=== PATIENT | male | born 1995 | race Caucasian/White ===

== ENCOUNTER 2017-02-14 12:17 | Emergency (ER) | payer MEDICAID ==
[~2017-02-14] VITALS: Ht 165.1 cm; Wt 72.6 kg
[~2017-02-14 12:17] MED LIST: AMOXICILLIN500 M2 PO; AMOXICILLIN875 MG PO; CLARITIN10 MG PO; Kenalog 0.5% Cr15 GM T; MEDROL DOSEPAK4 MG PO; MOTRIN400 MG PO
[2017-02-14 12:22] VITALS: BP 158/84
[2017-02-14] MEDS ORDERED: Motrin,Rufen800 MG PO (12:42)
[2017-02-14] MEDS ORDERED: CLINDAMYCIN HC300 MG PO (12:42)
[2017-02-14] MEDS ORDERED: AMOXICILLIN500 M2 PO (12:42)
== END 2017-02-14 13:32 | disposition home or self-care (01) ==
LOC: ED 12:17
DX: K04.7 Periapical abscess without sinus (principal)

== ENCOUNTER 2017-03-02 15:03 | Emergency (ER) | payer MEDICAID ==
[~2017-03-02] VITALS: Ht 165.1 cm; Wt 73.0 kg
[~2017-03-02 15:03] MED LIST changes: +CLINDAMYCIN HC300 MG PO; +Motrin,Rufen800 MG PO
[2017-03-02 15:20] VITALS: BP 151/89
== END 2017-03-02 16:56 | disposition home or self-care (01) ==
LOC: ED 15:03
DX: S81.812A Laceration without foreign body, left lower leg, initial encounter (principal); W27.8XXA Contact with other nonpowered hand tool, initial encounter; Y93.89 Activity, other specified; Y92.69 Other specified industrial and construction area as the place of occurrence of the external cause; Y99.9 Unspecified external cause status

== ENCOUNTER 2017-03-13 15:39 | Emergency (ER) | payer MEDICAID ==
[~2017-03-13] VITALS: Ht 167.6 cm; Wt 72.6 kg
[2017-03-13 16:14] VITALS: BP 127/54
== END 2017-03-13 17:00 ==
LOC: ED 15:39
DX: S81.812D Laceration without foreign body, left lower leg, subsequent encounter (principal); X58.XXXD Exposure to other specified factors, subsequent encounter

== ENCOUNTER 2017-07-01 10:15 | Emergency (ER) | payer MEDICAID ==
[~2017-07-01] VITALS: Ht 165.1 cm; Wt 72.6 kg
[2017-07-01 10:32] VITALS: BP 138/73
== END 2017-07-01 13:20 | disposition home or self-care (01) ==
LOC: ED 10:15
DX: S40.011A Contusion of right shoulder, initial encounter (principal); F10.10 Alcohol abuse, uncomplicated; Z79.899 Other long term (current) drug therapy; W10.8XXA Fall (on) (from) other stairs and steps, initial encounter; Y93.89 Activity, other specified; Y92.89 Other specified places as the place of occurrence of the external cause; Y99.8 Other external cause status

== ENCOUNTER 2021-07-12 10:40 | Emergency (ER) | payer OTHER ==
[~2021-07-12 10:40] MED LIST changes: +ZOFRAN4 MG PO
[2021-07-12 11:12] VITALS: BP 136/78
[2021-07-12 11:27] LABS: BASO % 0.3 % (0.0-1.0); EOS # 0.1 10*3/uL (0.0-0.4); EOS % 0.4 % (1.0-4.0); HEMATOCRIT 42.8 % (42.0-52.0); LYMPH # 2.9 10*3/uL (1.3-4.4); LYMPH % 20.3 % (27.0-41.0); MEAN CELL VOLUME 86.6 fl (80.0-94.0); MEAN CORPUSCULAR HGB 30.2 pg (27.0-31.0); MEAN CORPUSCULAR HGB CONC 34.8 g/dl (33.0-37.0); MEAN PLATELET VOLUME 10.3 fl (9.6-12.3); MONO # 0.9 10*3/uL (0.1-1.0); MONO % 6.5 % (3.0-9.0); NEUT # 10.3 10*3/uL (2.3-7.9); NEUT % 72.1 % (47.0-73.0); PLATELET COUNT AUTOMATED 299 10*3/uL (130-400); RED BLOOD COUNT 4.94 10*6/uL (4.50-5.90); WHITE BLOOD COUNT 14.2 10*3/uL (4.8-10.8)
[2021-07-12] MEDS ORDERED: COLACE100 MG PO (11:46)
== END 2021-07-12 11:50 | disposition home or self-care (01) ==
LOC: ED 10:40
PROVIDERS: Student in an Organized Health Care Education/Training Program
DX: K60.2 Anal fissure, unspecified (principal)